=== PATIENT | male | born 1980 | race Caucasian/White ===

== ENCOUNTER 2018-11-10 19:31 | Emergency (ER) | payer SELFPAY ==
[~2018-11-10] VITALS: Ht 193 cm; Wt 114.8 kg
[2018-11-10] MEDS ORDERED: ADENOSINE 6 MG/2 ML VIAL. IV ONE ×2 (19:34→19:45)
[2018-11-10 19:44] LABS: BASO # 0.1 x10^3/uL (0.0-0.2); BASO % 1 % (0-3); EOS # 0.3 x10^3/uL (0.0-0.7); EOS % 4 % (0-3); HEMOGLOBIN 15.5 g/dL (13.0-17.5); LYMPH # 2.8 x10^3/uL (1.0-4.8); LYMPH % 39 % (24-48); MEAN CORPUSCULAR HEMOGLOBIN 32 pg (25-35); MEAN CORPUSCULAR HGB CONC 34 g/dL (31-37); MEAN CORPUSCULAR VOLUME 92 fL (79-100); MONO # 0.6 x10^3/uL (0.0-1.1); MONO % 8 % (0-9); NEUT # 3.5 x10^3uL (1.8-7.7); NEUT % 48 % (31-73); PLATELET COUNT 201 x10^3/uL (140-400); RED BLOOD COUNT 4.86 x10^6/uL (4.30-5.70); RED CELL DISTRIBUTION WIDTH 13.1 % (11.5-14.5); WHITE BLOOD COUNT 7.3 x10^3/uL (4.0-11.0)
[2018-11-10] MEDS ORDERED: IV NORMAL SALINE 1000ML BAG 1,000 ML IV SCH (19:45)
[2018-11-10 19:53] LABS: CALCIUM 9.3 mg/dL (8.5-10.1); CREATININE 1.1 mg/dL (0.7-1.3); GFR 74.1; POTASSIUM 4.1 mmol/L (3.5-5.1)
[2018-11-10 19:59] LABS: ALBUMIN 3.9 g/dL (3.4-5.0); MAGNESIUM 1.8 mg/dL (1.8-2.4); TOTAL BILIRUBIN 0.5 mg/dL (0.2-1.0); TOTAL PROTEIN 7.9 g/dL (6.4-8.2)
--- NOTE | 2018-11-10 20:33 | PHYS DOC ---
Past Medical History Past Medical History: Other Additional Past Medical Histor: SVT Additional Past Surgical Histo: Cardiac Ablasion 4 years ago Alcohol Use: Occasionally Drug Use: None Adult General Chief Complaint Chief Complaint: RAPID HEART RATE HPI HPI Patient is a 38-year-old male who presents with complaint of rapid heartbeat. Patient indicates that he has a long history of SVT and states that he has been in SVT for approximately 4-1/2 hours. He states he has been trying vagal maneuvers at home without success. He does admit to some fullness in his chest but denies any actual pain. He does have some mild shortness of breath with exertion however. He denies any nausea, vomiting or diaphoresis. Patient is not sure what his trigger for the SVT is. Review of Systems Review of Systems Constitutional: Denies fever or chills [] Respiratory: Denies cough or shortness of breath [] Cardiovascular: No additional information not addressed in HPI [] GI: Denies abdominal pain, nausea, vomiting or diarrhea [] Neurologic: Denies headache, focal weakness or sensory changes [] All other systems were reviewed and found to be within normal limits, except as documented in this note. Current Medications Current Medications Current Medications Medications (Trade) Dose Ordered Sig/Vadim Start Time Stop Time Status Last Admin Dose Admin Adenosine (Adenocard) 12 mg 1X ONCE 11/10/18 19:45 11/10/18 19:46 DC 11/10/18 19:45 12 MG Sodium Chloride 1,000 ml @ 1,000 mls/hr Q1H 11/10/18 19:45 11/10/18 20:44 11/10/18 19:40 1,000 MLS/HR Allergies Allergies Allergies Coded Allergies Type Severity Reaction Last Updated Verified No Known Drug Allergies 11/10/18 No Physical Exam Physical Exam Constitutional: Well developed, well nourished, no acute distress, non-toxic appearance. [] HENT: Normocephalic, atraumatic, bilateral external ears normal, oropharynx moist, no oral exudates, nose normal. [] Eyes: PERRLA, EOMI, conjunctiva normal, no discharge. [] Neck: Normal range of motion, no tenderness, supple, no stridor. [] Cardiovascular: Markedly tachycardic rate with regular rhythm, no murmur [] Lungs & Thorax: Bilateral breath sounds clear to auscultation [] Abdomen: Bowel sounds normal, soft, no tenderness. [] Skin: Warm, dry, no erythema, no rash. [] Extremities: No tenderness, no cyanosis, no clubbing, ROM intact, no edema. [] Neurologic: Alert and oriented X 3, normal motor function, normal sensory function, no focal deficits noted. [] Current Patient Data Vital Signs Vital Signs Date Time Temp Pulse Resp B/P (MAP) Pulse Ox O2 Delivery O2 Flow Rate FiO2 11/10/18 19:35 98.9 192 16 115/57 (76) 96 Room Air 98.9 Lab Values Laboratory Tests Test 11/10/18 19:30 White Blood Count 7.3 x10^3/uL (4.0-11.0) Red Blood Count 4.86 x10^6/uL (4.30-5.70) Hemoglobin 15.5 g/dL (13.0-17.5) Hematocrit 45.0 % (39.0-53.0) Mean Corpuscular Volume 92 fL (79-100) Mean Corpuscular Hemoglobin 32 pg (25-35) Mean Corpuscular Hemoglobin Concent 34 g/dL (31-37) Red Cell Distribution Width 13.1 % (11.5-14.5) Platelet Count 201 x10^3/uL (140-400) Neutrophils (%) (Auto) 48 % (31-73) Lymphocytes (%) (Auto) 39 % (24-48) Monocytes (%) (Auto) 8 % (0-9) Eosinophils (%) (Auto) 4 % (0-3) H Basophils (%) (Auto) 1 % (0-3) Neutrophils # (Auto) 3.5 x10^3uL (1.8-7.7) Lymphocytes # (Auto) 2.8 x10^3/uL (1.0-4.8) Monocytes # (Auto) 0.6 x10^3/uL (0.0-1.1) Eosinophils # (Auto) 0.3 x10^3/uL (0.0-0.7) Basophils # (Auto) 0.1 x10^3/uL (0.0-0.2) Sodium Level 139 mmol/L (136-145) Potassium Level 4.1 mmol/L (3.5-5.1) Chloride Level 101 mmol/L (98-107) Carbon Dioxide Level 25 mmol/L (21-32) Anion Gap 13 (6-14) Blood Urea Nitrogen 18 mg/dL (8-26) Creatinine 1.1 mg/dL (0.7-1.3) Estimated GFR (Cockcroft-Gault) 74.1 BUN/Creatinine Ratio 16 (6-20) Glucose Level 110 mg/dL (70-99) H Calcium Level 9.3 mg/dL (8.5-10.1) Magnesium Level 1.8 mg/dL (1.8-2.4) Total Bilirubin 0.5 mg/dL (0.2-1.0) Aspartate Amino Transferase (AST) 19 U/L (15-37) Alanine Aminotransferase (ALT) 31 U/L (16-63) Alkaline Phosphatase 43 U/L (46-116) L Troponin I Quantitative < 0.017 ng/mL (0.000-0.055) SK-Aoe-Y-Type Natriuretic Peptide 98 pg/mL (0-124) Total Protein 7.9 g/dL (6.4-8.2) Albumin 3.9 g/dL (3.4-5.0) Albumin/Globulin Ratio 1.0 (1.0-1.7) Thyroid Stimulating Hormone (TSH) 3.664 uIU/mL (0.358-3.74) Laboratory Tests 11/10/18 19:30 Laboratory Tests 11/10/18 19:30 EKG EKG [] Radiology/Procedures Radiology/Procedures [] Course & Med Decision Making Course & Med Decision Making Pertinent Labs and Imaging studies reviewed. (See chart for details) Patient moved to room upon arrival was evaluated by ER staff after which an IV was established and blood work drawn. An EKG was obtained and demonstrated SVT with a rate of 190. Patient given 1 single dose of Adenocard, 12 mg IV. Patient did convert and post EKG demonstrated a normal sinus rhythm with rate of 89. There were frequent PVCs noted initially post conversion. Patient reports being completely asymptomatic and blood work is returned unremarkable. Patient requesting discharge at this time. Dragon Disclaimer Dragon Disclaimer This electronic medical record was generated, in whole or in part, using a voice recognition dictation system. Departure Departure Impression: Primary Impression: SVT (supraventricular tachycardia) Disposition: HOME, SELF-CARE Condition: STABLE Referrals: NO PCP (PCP) TIRSO DIEHL MD Patient Instructions: Supraventricular Tachycardia GIANNI SANDOVAL Jr. DO Nov 10, 2018 20:33
[2018-11-10 20:39] VITALS: BP 114/76
--- NOTE | 2018-11-10 21:36 | RAD ---
Examination: PORTABLE CHEST 1V History: palpitations Comparison/Correlation: None Findings: Portable frontal view chest was obtained with the patient upright. Heart size and pulmonary vasculature are normal. No infiltrate or pneumothorax. Bony structures are unremarkable. Impression: No active disease. Electronically signed by: Lucio Hanley MD (11/10/2018 9:31 PM) [facility]
--- NOTE | 2018-11-11 06:12 | EKG ---
[facility] [address] [place] [address] Test Date: 2018-11-10 Test Time: 19:45:50 Pat Name: RK BORJA Department: Room: Gender: M Assistant Office Manager: : 1980 Requested By: GIANNI SANDOVAL Order Number: [id number] Reading MD: Dajuan Myers Measurements Intervals [place] Rate: 89 P: 54 OR: 290 QRS: -171 QRSD: 166 T: 30 QT: 352 QTc: 434 Interpretive Statements SINUS RHYTHM VENTRICULAR PREMATURE COMPLEX(ES), BIGEMINY PROLONGED OR INTERVAL ABNORMAL RIGHT SUPERIOR AXIS DEVIATION RIGHT BUNDLE BRANCH BLOCK ABNORMAL ECG Electronically Signed On 11-15-2018 9:35:54 ESTATE PLANNER by Dajuan Myers
--- NOTE | 2018-11-11 06:12 | EKG ---
[facility] [address] [place] [address] Test Date: 2018-11-10 Test Time: 19:34:48 Pat Name: RK BORJA Department: Room: Gender: M Client Business Manager: : 1980 Requested By: GIANNI SANDOVAL Order Number: [id number] Reading MD: Dajuan Myers Measurements Intervals [place] Rate: 189 P: OR: QRS: -6 QRSD: 134 T: -177 QT: 278 QTc: 496 Interpretive Statements SUPRAVENTRICULAR TACHYCARDIA LEFTWARD AXIS LOW LIMB LEAD VOLTAGE NON SPECIFIC INTRAVENTRICULAR BLOCK ABNORMAL ECG No previous ECG available for comparison Electronically Signed On 11-15-2018 9:35:04 OPTICAL GOODS WORKER by Dajuan Myers
== END 2018-11-10 20:54 | disposition home or self-care (01) ==
LOC: ER 19:31
DX: I47.1 Supraventricular tachycardia (principal); R06.02 Shortness of breath
CPT/HCPCS: 36415; 71045; 80053; 83735; 83880; 84443; 84484; 85025; 93005; 99284; J0153; J7030

== ENCOUNTER 2019-09-18 18:56 | Emergency (ER) | payer SELFPAY ==
[~2019-09-18] VITALS: Ht 193 cm; Wt 116.1 kg
[2019-09-18] MEDS ORDERED: ADENOSINE 6 MG/2 ML VIAL. IV ONE (19:02)
[2019-09-18 19:15] LABS: BASO % 1 % (0-3); EOS % 0 % (0-3); HEMOGLOBIN 16.4 g/dL (13.0-17.5); LYMPH % 15 % (24-48); MEAN CORPUSCULAR HEMOGLOBIN 31 pg (25-35); MEAN CORPUSCULAR HGB CONC 34 g/dL (31-37); MEAN CORPUSCULAR VOLUME 92 fL (79-100); MONO # 1.2 x10^3/uL (0.0-1.1); MONO % 18 % (0-9); NEUT # 4.4 x10^3/uL (1.8-7.7); NEUT % 66 % (31-73); PLATELET COUNT 166 x10^3/uL (140-400); RED BLOOD COUNT 5.25 x10^6/uL (4.30-5.70); RED CELL DISTRIBUTION WIDTH 12.4 % (11.5-14.5); WHITE BLOOD COUNT 6.6 x10^3/uL (4.0-11.0)
[2019-09-18] MEDS ORDERED: IV NORMAL SALINE 1000ML BAG 1,000 ML IV ONE (19:15)
--- NOTE | 2019-09-18 19:15 | PHYS DOC ---
Past Medical History Past Medical History: Other Additional Past Medical Histor: SVT Additional Past Surgical Histo: Cardiac Ablasion 4 years ago Alcohol Use: Occasionally Drug Use: None Adult General Chief Complaint Chief Complaint: RAPID HEART RATE HPI HPI Patient is a 39 year old male presents to the ER with tachycardia. The patient states he's been feeling dizzy and having palpitations since 11 AM this morning. Has a history of SVT, had a cardiac ablation 5 years ago. He has no other comp laints. Review of Systems Review of Systems Constitutional: Denies fever or chills [] Eyes: Denies change in visual acuity, redness, or eye pain [] HENT: Denies nasal congestion or sore throat [] Respiratory: Denies cough or shortness of breath [] Cardiovascular: No additional information not addressed in HPI [] GI: Denies abdominal pain, nausea, vomiting, bloody stools or diarrhea [] : Denies dysuria or hematuria [] Musculoskeletal: Denies back pain or joint pain [] Integument: Denies rash or skin lesions [] Neurologic: Denies headache, focal weakness or sensory changes [] Endocrine: Denies polyuria or polydipsia [] Complete systems were reviewed and found to be within normal limits, except as documented in this note. Current Medications Current Medications Current Medications Medications (Trade) Dose Ordered Sig/Vadim Start Time Stop Time Status Last Admin Dose Admin Adenosine (Adenocard) 6 mg STK-MED ONCE 09/18/19 19:02 09/18/19 19:02 DC Sodium Chloride 1,000 ml @ 1,000 mls/hr 1X ONCE 09/18/19 19:15 09/18/19 20:14 DC 09/18/19 19:03 1,000 MLS/HR Allergies Allergies Allergies Coded Allergies Type Severity Reaction Last Updated Verified No Known Drug Allergies 11/10/18 No Physical Exam Physical Exam Constitutional: Well developed, well nourished, no acute distress, non-toxic appearance. [] HENT: Normocephalic, atraumatic, bilateral external ears normal, oropharynx moist, no oral exudates, nose normal. [] Eyes: PERRLA, EOMI, conjunctiva normal, no discharge. [] Neck: Normal range of motion, no tenderness, supple, no stridor. [] Cardiovascular:Heart rate tachycardia, no murmur [] Lungs & Thorax: Bilateral breath sounds clear to auscultation [] Abdomen: Bowel sounds normal, soft, no tenderness, no masses, no pulsatile masses. [] Skin: Warm, dry, no erythema, no rash. [] Back: No tenderness, no CVA tenderness. [] Extremities: No tenderness, no cyanosis, no clubbing, ROM intact, no edema. [] Neurologic: Alert and oriented X 3, normal motor function, normal sensory function, no focal deficits noted. [] Psychologic: Affect normal, judgement normal, mood normal. [] Current Patient Data Lab Values Laboratory Tests Test 09/18/19 19:00 White Blood Count 6.6 x10^3/uL (4.0-11.0) Red Blood Count 5.25 x10^6/uL (4.30-5.70) Hemoglobin 16.4 g/dL (13.0-17.5) Hematocrit 48.0 % (39.0-53.0) Mean Corpuscular Volume 92 fL (79-100) Mean Corpuscular Hemoglobin 31 pg (25-35) Mean Corpuscular Hemoglobin Concent 34 g/dL (31-37) Red Cell Distribution Width 12.4 % (11.5-14.5) Platelet Count 166 x10^3/uL (140-400) Neutrophils (%) (Auto) 66 % (31-73) Lymphocytes (%) (Auto) 15 % (24-48) L Monocytes (%) (Auto) 18 % (0-9) H Eosinophils (%) (Auto) 0 % (0-3) Basophils (%) (Auto) 1 % (0-3) Neutrophils # (Auto) 4.4 x10^3/uL (1.8-7.7) Lymphocytes # (Auto) 1.0 x10^3/uL (1.0-4.8) Monocytes # (Auto) 1.2 x10^3/uL (0.0-1.1) H Eosinophils # (Auto) 0.0 x10^3/uL (0.0-0.7) Basophils # (Auto) 0.0 x10^3/uL (0.0-0.2) Sodium Level 138 mmol/L (136-145) Potassium Level 4.4 mmol/L (3.5-5.1) Chloride Level 99 mmol/L (98-107) Carbon Dioxide Level 26 mmol/L (21-32) Anion Gap 13 (6-14) Blood Urea Nitrogen 12 mg/dL (8-26) Creatinine 1.4 mg/dL (0.7-1.3) H Estimated GFR (Cockcroft-Gault) 55.8 BUN/Creatinine Ratio 9 (6-20) Glucose Level 123 mg/dL (70-99) H Calcium Level 9.2 mg/dL (8.5-10.1) Total Bilirubin 0.3 mg/dL (0.2-1.0) Aspartate Amino Transferase (AST) 20 U/L (15-37) Alanine Aminotransferase (ALT) 25 U/L (16-63) Alkaline Phosphatase 44 U/L (46-116) L Troponin I Quantitative < 0.017 ng/mL (0.000-0.055) Total Protein 7.8 g/dL (6.4-8.2) Albumin 4.0 g/dL (3.4-5.0) Albumin/Globulin Ratio 1.1 (1.0-1.7) Laboratory Tests 09/18/19 19:00 Laboratory Tests 09/18/19 19:00 EKG EKG EKG at 1903 shows HR of 208 with SVT. Gave Adenosine and EKG at 1907 shows Sinus with rate of 99. EKGs interpreted by Dr. Mayorga. No STEMI. Radiology/Procedures Radiology/Procedures [] Course & Med Decision Making Course & Med Decision Making Pertinent Labs and Imaging studies reviewed. (See chart for details) Patient presented to ER in SVT, converted with 6 mg of Adenosine. Will get labs and observe. Did not get into SVT again. Will d/c home. Dragon Disclaimer Dragon Disclaimer This electronic medical record was generated, in whole or in part, using a voice recognition dictation system. Departure Departure Impression: Primary Impression: SVT (supraventricular tachycardia) Disposition: HOME, SELF-CARE Condition: STABLE Referrals: NO PCP (PCP) Patient Instructions: Cardiac Arrhythmia Additional Instructions: Thank you for visiting [facility]. We appreciate you trusting us with your care. If any additional problems come up don't hesitate to return to visit us. Please follow up with your primary care provider so they can plan additional care if needed and know about the problem that you had. If symptoms worsen come back to the Emergency Department. Any concerning symptoms that start such as chest pain, shortness of air, weakness or numbness on one side of the body, running high fevers or any other concerning symptoms return to the ER. GUS MONCADA APRN Sep 18, 2019 19:15
[2019-09-18 19:27] LABS: CALCIUM 9.2 mg/dL (8.5-10.1); CREATININE 1.4 mg/dL (0.7-1.3); GFR 55.8; POTASSIUM 4.4 mmol/L (3.5-5.1)
[2019-09-18 19:33] LABS: ALBUMIN/GLOBULIN RATIO 1.1 (1.0-1.7); TOTAL BILIRUBIN 0.3 mg/dL (0.2-1.0); TOTAL PROTEIN 7.8 g/dL (6.4-8.2)
[2019-09-18 19:43] VITALS: BP 131/77
--- NOTE | 2019-09-19 05:23 | EKG ---
[facility] [address] [place] [address] Test Date: 2019-09-18 Test Time: 19:07:06 Pat Name: RK BORJA Department: Room: Gender: M Mammalogist: : 1980 Requested By: GUS MONCADA Order Number: [id number] Reading MD: Dajuan Myers Measurements Intervals [place] Rate: 99 P: 40 [place]: 152 QRS: 43 QRSD: 98 T: 48 QT: 288 QTc: 374 Interpretive Statements SINUS RHYTHM QRS(T) CONTOUR ABNORMALITY CONSIDER ANTEROLATERAL MYOCARDIAL DAMAGE POSSIBLY ABNORMAL ECG Electronically Signed On 09-25-2019 15:11:27 ASSOCIATE PROFESSOR OF COUNSELING by Dajuan Myers
== END 2019-09-18 21:00 | disposition home or self-care (01) ==
LOC: ER 18:56
DX: I47.1 Supraventricular tachycardia (principal); R42 Dizziness and giddiness; R00.2 Palpitations
CPT/HCPCS: 36415; 80053; 84484; 85025; 93005; 96360; 99285; J7030

== ENCOUNTER 2019-10-05 19:50 | Inpatient (IN) | payer SELFPAY ==
[~2019-10-05] VITALS: Ht 182.9 cm; Wt 114.8 kg
[2019-10-05] MEDS ORDERED: ADENOSINE 6 MG/2 ML VIAL. IV ONE ×2 (20:00→20:30)
[2019-10-05] MEDS ORDERED: fentaNYL PF VIAL 100 MCG/2 ML VIAL ONE (20:06)
[2019-10-05] MEDS ORDERED: MIDAZOLAM HCL/PF 5 MG/5 ML VIAL. ONE (20:06)
[2019-10-05] MEDS ORDERED: LABETALOL 20 MG/4 ML DISP.SYRIN. IVP ONE (20:30)
[2019-10-05 20:44] LABS: BASO # 0.1 x10^3/uL (0.0-0.2); BASO % 1 % (0-3); EOS # 0.2 x10^3/uL (0.0-0.7); EOS % 3 % (0-3); HEMATOCRIT 44.3 % (39.0-53.0); HEMOGLOBIN 15.3 g/dL (13.0-17.5); LYMPH # 3.2 x10^3/uL (1.0-4.8); LYMPH % 41 % (24-48); MEAN CORPUSCULAR HEMOGLOBIN 31 pg (25-35); MEAN CORPUSCULAR HGB CONC 35 g/dL (31-37); MEAN CORPUSCULAR VOLUME 91 fL (79-100); MONO # 0.7 x10^3/uL (0.0-1.1); MONO % 10 % (0-9); NEUT # 3.6 x10^3/uL (1.8-7.7); NEUT % 46 % (31-73); PLATELET COUNT 261 x10^3/uL (140-400); RED BLOOD COUNT 4.88 x10^6/uL (4.30-5.70); RED CELL DISTRIBUTION WIDTH 12.5 % (11.5-14.5); WHITE BLOOD COUNT 7.9 x10^3/uL (4.0-11.0)
[2019-10-05] MEDS ORDERED: MIDAZOLAM HCL/PF 5 MG/5 ML VIAL. NS ONE (20:45)
[2019-10-05] MEDS ORDERED: IV NORMAL SALINE 1000ML BAG 1,000 ML IV ONE (20:45)
[2019-10-05] MEDS ORDERED: fentaNYL PF VIAL 100 MCG/2 ML VIAL IVP ONE (20:45)
[2019-10-05 20:55] LABS: CALCIUM 9.1 mg/dL (8.5-10.1); GFR 82.3; POTASSIUM 4.3 mmol/L (3.5-5.1)
[2019-10-05] MEDS ORDERED: DIGOXIN IV 500 MCG/2 ML AMPUL. IV ONE ×2 (21:00→23:30)
[2019-10-05 21:03] LABS: ALBUMIN 3.8 g/dL (3.4-5.0); TOTAL BILIRUBIN 0.3 mg/dL (0.2-1.0); TOTAL PROTEIN 7.7 g/dL (6.4-8.2)
--- NOTE | 2019-10-05 21:16 | PHYS DOC ---
Past Medical History Past Medical History: Other Additional Past Medical Histor: SVT Additional Past Surgical Histo: Cardiac Ablasion 4 years ago Alcohol Use: Occasionally Drug Use: None Adult General Chief Complaint Chief Complaint: RAPID HEART RATE HPI HPI 39-year-old male presents to the emergency department with complaints of SVT. Patient has a history of SVT currently on metoprolol. States he seen cardiology with previous evaluation and ablation at [facility]. He presents today with heart rate in the 200s. He describes a chest pressure, dizziness. Denies any nausea, vomiting, headache or visual change. Recent symptoms worse, nothing makes his symptoms better. Review of Systems Review of Systems Constitutional: Denies fever or chills [] Respiratory: Shortness of breath Cardiovascular: Tachycardia GI: Denies abdominal pain, nausea, vomiting, bloody stools or diarrhea [] Musculoskeletal: Denies back pain or joint pain [] Integument: Denies rash or skin lesions [] Neurologic: Denies headache, focal weakness or sensory changes [] All other systems were reviewed and found to be within normal limits, except as documented in this note. Current Medications Current Medications Current Medications Medications (Trade) Dose Ordered Sig/Vadim Start Time Stop Time Status Last Admin Dose Admin Adenosine (Adenocard) 6 mg 1X ONCE 10/05/19 20:30 10/05/19 20:31 DC 10/05/19 20:03 6 MG Digoxin (Lanoxin) 250 mcg 1X ONCE 10/05/19 21:00 10/05/19 21:01 Fentanyl Citrate (Fentanyl 2ml Vial) 25 mcg 1X ONCE 10/05/19 20:45 10/05/19 20:46 DC 10/05/19 20:12 25 MCG Labetalol HCl (Normodyne Iv Push) 20 mg 1X ONCE 10/05/19 20:30 10/05/19 20:31 DC 10/05/19 20:32 20 MG Midazolam HCl (Versed) 5 mg 1X ONCE 10/05/19 20:45 10/05/19 20:54 DC 10/05/19 20:13 5 MG Sodium Chloride 1,000 ml @ 1,000 mls/hr 1X ONCE 10/05/19 20:45 10/05/19 21:44 10/05/19 20:32 1,000 MLS/HR Allergies Allergies Allergies Coded Allergies Type Severity Reaction Last Updated Verified No Known Drug Allergies 11/10/18 No Physical Exam Physical Exam Constitutional: Well developed, well nourished, no acute distress, non-toxic appearance. [] HENT: Normocephalic, atraumatic, bilateral external ears normal, oropharynx moist, no oral exudates, nose normal. [] Eyes: PERRLA, EOMI, conjunctiva normal, no discharge. [] Cardiovascular: Tachycardia Lungs & Thorax: Bilateral breath sounds clear to auscultation [] Abdomen: Bowel sounds normal, soft, no tenderness, no masses, no pulsatile m asses. [] Skin: Warm, dry, no erythema, no rash. [] Extremities: No tenderness, no edema. [] Neurologic: Alert and oriented X 3, no focal deficits noted. [] Psychologic: Affect normal, judgement normal, mood normal. [] Current Patient Data Vital Signs Vital Signs Date Time Temp Pulse Resp B/P (MAP) Pulse Ox O2 Delivery O2 Flow Rate FiO2 10/05/19 20:32 158 112/56 10/05/19 20:12 16 92 10/05/19 19:55 98.5 Room Air 98.5 Lab Values Laboratory Tests Test 10/05/19 20:00 White Blood Count 7.9 x10^3/uL (4.0-11.0) Red Blood Count 4.88 x10^6/uL (4.30-5.70) Hemoglobin 15.3 g/dL (13.0-17.5) Hematocrit 44.3 % (39.0-53.0) Mean Corpuscular Volume 91 fL (79-100) Mean Corpuscular Hemoglobin 31 pg (25-35) Mean Corpuscular Hemoglobin Concent 35 g/dL (31-37) Red Cell Distribution Width 12.5 % (11.5-14.5) Platelet Count 261 x10^3/uL (140-400) Neutrophils (%) (Auto) 46 % (31-73) Lymphocytes (%) (Auto) 41 % (24-48) Monocytes (%) (Auto) 10 % (0-9) H Eosinophils (%) (Auto) 3 % (0-3) Basophils (%) (Auto) 1 % (0-3) Neutrophils # (Auto) 3.6 x10^3/uL (1.8-7.7) Lymphocytes # (Auto) 3.2 x10^3/uL (1.0-4.8) Monocytes # (Auto) 0.7 x10^3/uL (0.0-1.1) Eosinophils # (Auto) 0.2 x10^3/uL (0.0-0.7) Basophils # (Auto) 0.1 x10^3/uL (0.0-0.2) Sodium Level 140 mmol/L (136-145) Potassium Level 4.3 mmol/L (3.5-5.1) Chloride Level 102 mmol/L (98-107) Carbon Dioxide Level 26 mmol/L (21-32) Anion Gap 12 (6-14) Blood Urea Nitrogen 14 mg/dL (8-26) Creatinine 1.0 mg/dL (0.7-1.3) Estimated GFR (Cockcroft-Gault) 82.3 BUN/Creatinine Ratio 14 (6-20) Glucose Level 103 mg/dL (70-99) H Calcium Level 9.1 mg/dL (8.5-10.1) Magnesium Level Pending Total Bilirubin Pending Aspartate Amino Transferase (AST) Pending Alanine Aminotransferase (ALT) Pending Alkaline Phosphatase Pending Total Protein Pending Albumin Pending Albumin/Globulin Ratio Pending Laboratory Tests 10/05/19 20:00 Laboratory Tests 10/05/19 20:00 EKG EKG EKG 1954 evidence of heart rate 206, normal axis, SVT Repeat EKG 2027, heart rate 127 atrial fibrillation normal axis.[] Radiology/Procedures Radiology/Procedures [] Course & Med Decision Making Course & Med Decision Making Pertinent Labs and Imaging studies reviewed. (See chart for details) []39-year-old male presents to the emergency department with complaints of SVT. Patient has a history of SVT currently on metoprolol. States he seen cardiology with previous evaluation and ablation at [facility]. He presents today with heart rate in the 200s. He describes a chest pressure, dizziness. Denies any nausea, vomiting, headache or visual change. Recent symptoms worse, nothing makes his symptoms better. Patient given 6 mg of adenosine without change in rhythm, repeat with 12 mg of adenosine without change. Discussed with patient, versed 5mg, fentanyl 25mcg IV x 1 cardioversion 200J without conversion of rhythm Patient with BP in the 120's Called Cardiology - DR CALIXTO 2016 - discussed case, agrees with labetalol 2 0mg, 10mg given 2/2 BP drop to 100's Called back discussed with him the findings of afib change, digoxin 250mcg IV x 1 Requested to admit to ICU and will be available as needed Discussed admit with DR JEWELL Castano Disclaimer Eyad Disclaimer This electronic medical record was generated, in whole or in part, using a voice recognition dictation system. Critical Care Time Critical care time was 40 minutes exclusive of procedures. Cardioversion Indication: [INDICATION:] SVT unsuccessful with chemical cardioversion Consent: The patient provided verbal consent for this procedure. Pre-Medication: []fentanyl 25mcg, versed 5mg Procedure: The patient was placed in the supine position and the chest area was exposed. The cardioversion pads were applied in the standard manner and configuration. The defibrillator was set on the synchronized mode and charged to 200 joules. A charge was then delivered which resulted in no change in rhythm. The patient tolerated the procedure well. Complications: none. [] Departure Departure Impression: Primary Impression: SVT (supraventricular tachycardia) Additional Impression: Afib Disposition: 09 ADMITTED INPATIENT Admitting Physician: DAJUAN Condition: IMPROVED Referrals: NO PCP (PCP) Problem Qualifiers Additional Impression: Afib Atrial fibrillation type: paroxysmal Qualified Codes: I48.0 - Paroxysmal atrial fibrillation AAYUSH VASQUEZ MD Oct 05, 2019 21:16
[2019-10-05 22:46] VITALS: BP 92/52
[2019-10-05] MEDS ORDERED: dilTIAZem INJ 125 MG in IV DEXTROSE 5% 100ML 100 ML IV PRN (23:00)
[2019-10-05] MEDS ORDERED: dilTIAZem IV PUSH 25 MG/5 ML VIAL IVP ONE (23:30)
[2019-10-06] VITALS (7 sets, daily range): BP systolic 91–112; BP diastolic 58–83
--- NOTE | 2019-10-06 04:50 | NUR ---
admitted from ER, At dinner this pm patient c/o increasing Chest pressure. To ER- in SVT-adenosine, cardioversion and Dig, On arrival to ICU patient is in A-fib, heart rate in 130-160. Dr Kate called orders received
--- NOTE | 2019-10-06 07:54 | NUR ---
[facility] SHIFT CHANGE NOTIFIED DURING REPORT THAT PT WAS WANTING TO LEAVE. PT SIGNED AMA PAPERS DR CORCORAN NOTIFIED ASHLEY FROM [facility] CALLED AND WALKED WITH CASH APPLICATION REPRESENTATIVE AND PT TO RIDE FROM IN THE ER. SPOKE TO THE PT PRIOR TO LEAVING REGARDING RISKS OF LEAVING AMA AND TO PLEASE FOLLOW UP WITH THE CLINIC HE STATES HE SEES A NURSE AT. PT EDUCATED ON SYMPTOMS REMAINING AND WORSENING TO SEEK MEDICAL ATTENTION. PT NOT WILLING TO STAY IN THE HOSPITAL AT THIS TIME AND STATES HE WILL BE FINE WHEN HE GOES HOME TO SLEEP.
--- NOTE | 2019-10-06 09:47 | EKG ---
[facility] [address] [place] [address] Test Date: 2019-10-05 Test Time: 20:28:31 Pat Name: RK BORJA Department: Room: 114 1 Gender: High Speed Operator: : 1980 Requested By: AAYUSH VASQUEZ Order Number: [id number] Reading MD: Sebastian Dukes MD Measurements Intervals [place] Rate: P: [place]: QRS: QRSD: T: QT: QTc: Interpretive Statements ATRIAL FIBRILLATION WITH RVR Electronically Signed On 10-10-2019 13:43:49 STONEMASON SUPERVISOR by Sebasitan Dukes MD
--- NOTE | 2019-10-06 09:55 | EKG ---
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
== END 2019-10-06 07:45 | disposition left against medical advice (07) | DRG 310 ==
LOC: ER 19:50 → 1 WEST ICU 20:50
PROVIDERS: ADMIT Internal Medicine; ATTEND Internal Medicine
PROC: 5A2204Z Restoration of Cardiac Rhythm, Single (ICD-10-PCS; principal; 2019-10-05)
DX: I47.1 Supraventricular tachycardia (principal); I48.0 Paroxysmal atrial fibrillation
CPT/HCPCS: 36415; 80053; 83735; 85025; 92960; 93005; J0153; J1160; J2250; J3010; J3490; J7030; 99291-25; G0378